=== PATIENT | female | born 1940 | race Caucasian/White ===

== ENCOUNTER 2016-09-26 10:13 | Day surgery (SDC) | payer MEDICARE, OTHER ==
[2016-09-23 10:59] LABS: HEMATOCRIT 43.1 % (36.0-48.0); HEMOGLOBIN 14.5 g/dL (12.0-16.0)
--- NOTE | ~2016-09-26 | OP ---
Record Of Operation [facility] [address] [place]. [address] NAME: NIGEL SINCLAIR : 42 STATUS : [facility]#: [id number] AGE: 76 ADM/REG DATE : 09/26/16 MR#: [id number] REPORT SERV DATE: 09/26/16 DICTATED BY: Madison MARTÍNEZ DATE: 09/26/16 REPORT STATUS : Draft TRANSCRIBED BY: JOAO DATE: 09/26/16 DATE OF PROCEDURE: 09/26/2016 PREOPERATIVE DIAGNOSES: 1. Basal cell carcinoma of the right nasal supratip. 2. Defect of the right nasal supratip secondary to Mohs micrographic surgical excision of basal cell carcinoma. 3. 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 4. Acquired deformity of the distal nasal dorsum secondary to previous cancer resection. POSTOPERATIVE DIAGNOSES: 1. Basal cell carcinoma of the right nasal supratip. 2. Defect of the right nasal supratip secondary to Mohs micrographic surgical excision of basal cell carcinoma. 3. 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 4. Acquired deformity of the distal nasal dorsum secondary to previous cancer resection. 5. Right intranasal lateral nasal alar lesion, basal cell carcinoma by frozen section. 6. Left lower lateral nasal sidewall lesion, sebaceous hyperplasia by frozen section. 7. Right lateral nasal alar crease basal cell carcinoma by frozen section. PROCEDURES: 1. Surgical excisional preparation of right nasal supratip defect. 2. Reconstruction of right nasal supratip defect with a laterally based nasalis muscle bilobed myocutaneous flap. 3. Cartilage-fat and muscle subcutaneous hinged pedicle flap to distal nasal dorsum acquired deformity. 4. Harvesting of right ear cartilage graft. 5. Right ear cartilage graft to left nasal ala to repair nasal vestibular stenosis. 6. Biopsy of right intranasal lateral alar lesion with frozen section. 7. Re-excision of right intranasal lateral alar lesion basal cell carcinoma with frozen section and simple repair. 8. Biopsy of left lower lateral nasal sidewall lesion with frozen section and simple repair. 9. Biopsy of right lateral nasal alar crease lesion with frozen section. 10.Excision of right lateral nasal alar crease basal cell carcinoma and simple repair. FINDINGS: 1. A 1 cm diameter lesion of the right nasal supratip, full-thickness skin down to the level of cartilage; 2.5 mm lesion just inside the right nostril on the lateral alar, basal cell carcinoma by frozen section, measuring 2.5 mm incised, reexcised and frozen section showed margins free; a 3 mm lesion of the left lateral lower nasal sidewall measuring 3 mm (benign sebaceous hyperplasia by frozen section); right lateral nasal Record Of Operation [place] [id number] [facility] [address] [place] [address] NAME: NIGEL SINCLAIR : 42 STATUS : [facility] PAT#: [id number] AGE: 76 ADM/REG DATE : 09/26/16 MR#: [id number] REPORT SERV DATE: 09/26/16 DICTATED BY: Madison MARTÍNEZ DATE: 09/26/16 REPORT STATUS : Draft TRANSCRIBED BY: JOAO DATE: 09/26/16 alar crease where it meets the apical triangle of the upper lip, the lesion measuring 2.5 mm, basal cell carcinoma by frozen sections, final margins clear; depressed distal nasal dorsum, secondary to previous skin cancer surgery. INDICATIONS: This 76-year-old female presents today for reconstruction of a Mohs defect of the right nasal supratip, following Mohs micrographic surgical excision of basal cell carcinoma this morning. At a separate consultation, prior to the Mohs surgery, the patient described nasal obstruction on the left secondary to previous skin cancer reconstruction. This had been several years ago and the nostrils collapsed. She apparently had a nasal labial flap and may have had a through and through defect. In 2004, another surgeon tried to place a cartilage graft but it did not help her nasal obstruction. She has depressed distal nasal dorsum. We discussed repair of the anticipated defect of the right nasal supratip, augmentation of the defect of the distal nasal dorsum, and ear cartilage graft to repair her nasal vestibular stenosis. The pros and cons, alternatives, benefits, risks, limitations, and complications, including but not limited to, infection, scarring, reaction to suture, recurrence of tumor, distortion of the nose, continued nasal airway obstruction, imponderables. She understands and wishes to proceed. Her history is significant, in that she had facial radiation for acne when she was a teenager, and this has resulted in multiple skin cancers. She wishes to proceed. Proper consent obtained. PROCEDURE: She was taken into the operating room and given general oral endotracheal anesthesia in the supine position. The dressing on her nose was removed. The entire face and right ear were prepped with Hibiclens and saline followed by isopropyl alcohol. None of these solutions got in her eyes. None of the alcohol got in to the wound. The right ear was prepped with the same solution as well as the periauricular scalp and neck. Sterile drapes were applied. A careful inspection of the nose revealed that she had a lesion inside the right nostril that had not been identified before. This was in the right lateral alar area. It measured approximately 2.5 mm in size. It was felt that this should be biopsied. The nose was injected with 1% Xylocaine with 1:100,000 epinephrine. The area was shaved, excised, and given to the pathologist to perform frozen sections. While the frozen section was being performed, it was also seen that she had another lesion on the left distal lower nasal sidewall, and this was outlined for biopsy. She also had a lesion in the right alar crease laterally where the apical portion of the upper lip met the ala. Frozen sections returned showing the right intranasal lesion to be basal cell carcinoma. It was further excised with a small ellipse around this, with a suture placed at 12 o'clock position. This was handed to the pathologist to perform frozen sections. I pointed out to him the other lesions that we were going to biopsy as well. The left lower lateral distal sidewall lesion was excised with a suture placed at 12 o'clock and given to the pathologist to perform frozen sections. The same was done for the lesion of the right nasal alar crease, was shaved excised, and frozen sections were to be performed. Record Of Operation [place] [id number] [facility] [place]. [address] NAME: NIGEL SINCLAIR : 42 STATUS : [facility] PAT#: [id number] AGE: 76 ADM/REG DATE : 09/26/16 MR#: [id number] REPORT SERV DATE: 09/26/16 DICTATED BY: Madison MARTÍNEZ DATE: 09/26/16 REPORT STATUS : Draft TRANSCRIBED BY: JOAO DATE: 09/26/16 Frozen sections returned showing the margins to be free on the right intranasal lesion. Frozen sections returned showing left lower distal nasal sidewall to be benign sebaceous hyperplasia. Frozen section on the right lateral nasal alar crease showed basal cell carcinoma, and reexcision of this area was accomplished with a #15 blade, and the specimen given to the pathologist with a suture marking the 12 o'clock position. Frozen sections returned showing margins clear. This area was closed with simple sutures of 6-0 Prolene. The right intranasal defect was also closed with simple sutures of 6-0 Prolene. A standard bilobed flap was outlined carefully on the right side of the nose, basing it on the lateral origin of the nasalis muscle. The beveled edges of the defect were marked out with a marking pen. This defect measured 1 cm in diameter. A triangle of skin was also marked out superior lateral to the defect, to be excised in order to surgically excisionally prepare it for acceptance of the primary lobe of the bilobed flap. The nose was injected with 1% Xylocaine with 1:100,000 epinephrine and 0.5% Marcaine with 1:200,000 epinephrine. The defect was surgically excisionally prepared according to the markings with a #15 blade, removing the beveled edges along with the lateral triangle of skin and subcutaneous tissue to surgically prepare the defect for proper closure. The bilobed flap was incised and then carefully elevated above the level of the perichondrium and periosteum and below the level of the nasalis muscle. Great care was taken not to injure the muscle and its vascular supply and keep it intact, laterally based. The secondary lobe donor site was closed with 5 0 Vicryl deep. The nasalis muscle myocutaneous flap was transposed with the primary lobe into the primary defect, suturing in place with 5-0 and 6-0 Vicryl deep and 6-0 Prolene on the skin. The secondary lobe was cut to fit and sutured in place with 6-0 Vicryl deep and 6 0 Prolene on the skin. Prior to the transposition of the bilobed flap and closure of the bilobed flap, the acquired deformity of the nose in the area of the distal nasal dorsum was first corrected. This was corrected by performing a cephalic strip on both alar tip cartilages medially and medially superiorly, and keeping this these stricture and keeping the cephalic strips attached to the subcutaneous fat and the muscle, dissecting it superiorly, creating a pedicled flap superiorly. This was then turned up on itself and placed it into the area of the depressed distal nasal dorsum and sutured in place with interrupted 5-0 Vicryl deep. This was done before the transposition of the bilobed flap and closure of the bilobed flap. Through the area of defect of the distal lower nasal sidewall (that proved to be sebaceous hyperplasia by frozen section), the curved iris scissors were used to dissect the ala that was collapsed and causing this tubular stenosis. The undermining and dissection of this ala was performed with the iris scissors laterally and medially so that the entire ala was freed up even under the distal portion of the previous flap reconstruction that had been done by another surgeon. Record Of Operation [facility] [address] [facility] [place]. [address] NAME: NIGEL SINCLAIR : 42 STATUS : [facility] PAT#: [id number] AGE: 76 ADM/REG DATE : 09/26/16 MR#: [id number] REPORT SERV DATE: 09/26/16 DICTATED BY: Madison MARTÍNEZ DATE: 09/26/16 REPORT STATUS : Draft TRANSCRIBED BY: JOAO DATE: 09/26/16 The attention was turned to the right ear with new instruments and new gloves. The right ear was injected with 2% Xylocaine with 1:100,000 epinephrine and 0.5% Marcaine with 1:200,000 epinephrine. The shoulder of the arben cavum was incised with a #15 blade caring it through skin and through cartilage. The incision measured 3.5 cm curving around the entire arben cavum. The anterior skin was dissected free from the cartilage and then dissection on the posterior aspect of the cartilage was accomplished with #15 blade where the sufficient cartilage was excised and kept in saline. The skin that had been reflected was laid back into its proper position and sutured loosely with 6-0 Prolene. Next, a through and through quilting suture of 6-0 Prolene was done to keep the skin flaps together. The cartilage graft was cut to fit and then inserted into the ala in a curved manner to support the ala and correct the nasal vestibular stenosis. This tissue was quite fibrotic, and there was significant improvement. An extra piece of alar cartilage was placed out in the area of the alar "lobule", which was contracted and scarred from previous surgery. The skin was closed with 5-0 Vicryl deep and 6-0 Prolene on the skin. A left inter-cartilaginous incision was made and a small Edy drain was placed beneath the bilobed flap reconstruction and sutured in place with 6-0 Prolene intranasally. All wounds were cleansed with hydrogen peroxide and dried. Mastisol and paper tape were applied to the skin. It should be mentioned that the secondary lobe donor site was coapted at the skin level with Dermabond. The right ear donor site was treated with Xeroform, cotton, Telfa, Mastisol, and paper tape. Additional Telfa was placed behind the left ear and taped in place to catch any drippage of blood from the through and through quilting sutures. She had been given Ancef 2 g intravenously prior to any incisions. She tolerated the procedure well. She was awakened and extubated and taken to the recovery room in good condition. DISCHARGE INSTRUCTIONS: Home going instructions is to keep the tape dry and intact on her face and on her ear and recheck in 6 days in the office. She is to keep her face still. No nose blowing. She is to avoid laughing, talking, smiling, and chewing. She is to have a mechanically soft diet for seven days. Prescriptions were written for Zofran 8 mg ODT #6 one dissolved orally q.6 hours p.r.n. nausea and vomiting and for hydrocodone 7.5 mg/325 APAP #25 one p.o. q.4-6 hours p.r.n. pain. She has cephalexin already at home which she will continue 500 mg b.i.d. until seen in the office. BLUE/MODL Madison Martínez M.D. Record Of [address] [address] NAME: ELADIO PABLONIGEL GARDUNON : 42 STATUS : [facility] PAT#: [id number] AGE: 76 ADM/REG DATE : 09/26/16 MR#: [id number] REPORT SERV DATE: 09/26/16 DICTATED BY: Madison MARTÍNEZ DATE: 09/26/16 REPORT STATUS : Draft TRANSCRIBED BY: JOAO DATE: 09/26/16 / [id number] CC: Kadeem Brandon M.D.
[~2016-09-26 10:13] MED LIST: BUSPAR30 MG PO; K500 PO; LIPITOR10 PO; LUMIGAN2.5 ML OPH; MULTI-VIT HP PO; REM15 PO; SYN112 PO; ZOLOFT25 MG PO
== END 2016-09-26 20:55 | disposition home or self-care (01) ==
LOC: SDC 10:13
PROVIDERS: Specialist
PROC: 090 Ear, Nose, Sinus, Alteration (ICD-10-PCS; principal; 2016-09-26 11:15)
PROC: 09B0XZZ Excision of Right External Ear, External Approach (ICD-10-PCS; 2016-09-26 11:15)
DX: C44.311 Basal cell carcinoma of skin of nose (principal); H40.9 Unspecified glaucoma; E78.5 Hyperlipidemia, unspecified; F41.9 Anxiety disorder, unspecified; F32.9 Major depressive disorder, single episode, unspecified; E89.0 Postprocedural hypothyroidism; E78.00 Pure hypercholesterolemia, unspecified; Z90.711 Acquired absence of uterus with remaining cervical stump; Z96.1 Presence of intraocular lens; Z98.41 Cataract extraction status, right eye; Z98.42 Cataract extraction status, left eye; Z90.89 Acquired absence of other organs; Z90.49 Acquired absence of other specified parts of digestive tract; Z79.899 Other long term (current) drug therapy
CPT/HCPCS: 85014; 85018; 88305; 88331; 93005; A9270-GY; C1894; J0690; J2405; J2710; J3010